=== PATIENT | male | born 1945 | race Caucasian/White ===

== ENCOUNTER → 2018-07-01 13:36 | Outpatient (CLI) | payer MEDICARE, SELFPAY | PROVIDERS: Family Provider Family Medicine Geriatric Medicine; PCP Family Medicine Geriatric Medicine; Visit Provider Family Medicine Geriatric Medicine | DX: M85.852 Other specified disorders of bone density and structure, left thigh (principal); Z82.62 Family history of osteoporosis | CPT/HCPCS: 77080 ==

== ENCOUNTER → 2021-06-05 15:05 | Outpatient (ROUT) | payer MEDICARE, SELFPAY | PROVIDERS: Family Provider Family Medicine Geriatric Medicine; PCP Family Medicine Geriatric Medicine; Visit Provider Dermatology | DX: L03.032 Cellulitis of left toe (principal) | CPT/HCPCS: 87070; 87075; 87077; 87186; 87205 ==

== ENCOUNTER → 2021-09-18 12:56 | Outpatient (ROUT) | payer MEDICARE, SELFPAY | PROVIDERS: Family Provider Family Medicine Geriatric Medicine; PCP Family Medicine Geriatric Medicine; Visit Provider Dermatology | DX: L97.529 Non-pressure chronic ulcer of other part of left foot with unspecified severity (principal) | CPT/HCPCS: 87070; 87075; 87147; 87186; 87205 ==

== ENCOUNTER → 2021-11-01 08:36 | Outpatient (CLI) | payer MEDICARE, SELFPAY | PROVIDERS: Family Provider Family Medicine Geriatric Medicine; PCP Family Medicine Geriatric Medicine; Referring Provider Family Medicine Geriatric Medicine; Visit Provider Family Medicine | DX: L97.522 Non-pressure chronic ulcer of other part of left foot with fat layer exposed (principal); L08.9 Local infection of the skin and subcutaneous tissue, unspecified; G62.9 Polyneuropathy, unspecified; M21.372 Foot drop, left foot; I73.00 Raynaud's syndrome without gangrene; I65.29 Occlusion and stenosis of unspecified carotid artery; Z96.7 Presence of other bone and tendon implants | CPT/HCPCS: 11042; 87070; 87075; 87077; 87186; 87205; 99204; 99214 ==

== ENCOUNTER → 2021-11-08 09:17 | Outpatient (CLI) | payer MEDICARE, SELFPAY | PROVIDERS: Family Provider Family Medicine Geriatric Medicine; PCP Family Medicine Geriatric Medicine; Referring Provider Family Medicine Geriatric Medicine; Visit Provider Family Medicine | DX: L97.522 Non-pressure chronic ulcer of other part of left foot with fat layer exposed (principal); L08.89 Other specified local infections of the skin and subcutaneous tissue; B96.89 Other specified bacterial agents as the cause of diseases classified elsewhere; G62.9 Polyneuropathy, unspecified; M21.372 Foot drop, left foot; I73.00 Raynaud's syndrome without gangrene; I65.29 Occlusion and stenosis of unspecified carotid artery; Z96.7 Presence of other bone and tendon implants | CPT/HCPCS: 11042; 99214 ==

== ENCOUNTER → 2021-11-22 12:03 | Outpatient (CLI) | payer MEDICARE, SELFPAY | PROVIDERS: Family Provider Family Medicine Geriatric Medicine; PCP Family Medicine Geriatric Medicine; Referring Provider Family Medicine Geriatric Medicine; Visit Provider Family Medicine | DX: L97.522 Non-pressure chronic ulcer of other part of left foot with fat layer exposed (principal); G62.9 Polyneuropathy, unspecified; M21.372 Foot drop, left foot; I73.00 Raynaud's syndrome without gangrene; I65.29 Occlusion and stenosis of unspecified carotid artery; Z96.7 Presence of other bone and tendon implants | CPT/HCPCS: 11042 ==

== ENCOUNTER → 2021-12-04 08:43 | Outpatient (CLI) | payer MEDICARE, SELFPAY | PROVIDERS: Family Provider Family Medicine Geriatric Medicine; PCP Family Medicine Geriatric Medicine; Referring Provider Family Medicine Geriatric Medicine; Visit Provider Family Medicine | DX: L97.522 Non-pressure chronic ulcer of other part of left foot with fat layer exposed (principal); G62.9 Polyneuropathy, unspecified; M21.372 Foot drop, left foot; I73.00 Raynaud's syndrome without gangrene; I65.29 Occlusion and stenosis of unspecified carotid artery; Z96.7 Presence of other bone and tendon implants | CPT/HCPCS: 11042; 87070; 87075; 87077; 87147; 87186; 87205 ==

== ENCOUNTER → 2021-12-13 09:49 | Outpatient (CLI) | payer MEDICARE, SELFPAY | PROVIDERS: Family Provider Family Medicine Geriatric Medicine; PCP Family Medicine Geriatric Medicine; Referring Provider Family Medicine Geriatric Medicine; Visit Provider Family Medicine | DX: L97.526 Non-pressure chronic ulcer of other part of left foot with bone involvement without evidence of necrosis (principal); L08.89 Other specified local infections of the skin and subcutaneous tissue; B95.7 Other staphylococcus as the cause of diseases classified elsewhere; G62.9 Polyneuropathy, unspecified; M21.372 Foot drop, left foot; I70.0 Atherosclerosis of aorta; I65.29 Occlusion and stenosis of unspecified carotid artery; Z96.7 Presence of other bone and tendon implants | CPT/HCPCS: 11042; 99212; 99214 ==

== ENCOUNTER → 2021-12-20 08:27 | Outpatient (CLI) | payer MEDICARE, SELFPAY ==
--- NOTE | 2021-12-20 08:30 | DI.MRI.S_ITS ---
PROCEDURE: MR FOOT LT WO/W CON INDICATIONS: Eval for osteo Right hallux TECHNIQUE: Noncontrast coronal T1 spin echo and STIR, sagittal T1 spin echo with fat saturation and STIR, axial T1 spin echo and T2 fast spin echo with fat saturation. After the administration of contrast, axial/sagittal/coronal T1 spin echo with fat saturation through the left foot. COMPARISON: [facility] [place], CR, XR FOOT 3+ VIEWS LEFT, 07/01/2018, 8:42. FINDINGS: Image quality: Excellent. Bones: There is prior surgical fusion of 1st interphalangeal joint with susceptibility artifacts. Extensive marrow edema involving 2nd distal phalanx is seen with subtle erosive changes involving lateral cortex of 1st distal phalangeal shaft and tuft. Mild contrast enhancement in this area is also noted. No other area of abnormal marrow signal or abnormal contrast enhancement. 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 No suspicious intraosseous lesion. Soft tissues: N significant soft tissue edema over dorsum of midfoot and forefoot is seen. No discrete drainable fluid collection is noted. No enhancing soft tissue mass . Forefoot tendons are grossly intact. Lisfranc ligament and joint is intact. IMPRESSION: 1. Cellulitis in midfoot and forefoot with soft tissue swelling. No discrete drainable fluid collection. No enhancing soft tissue mass. 2. Prior fusion of 1st interphalangeal joint with susceptibility artifact. Suggestion of osteomyelitis involving 1st distal phalanx with edema and subtle bony erosive changes. No other area of abnormal marrow signal or contrast enhancement. 3. Forefoot tendons and ligaments are grossly intact. Dictated by: Ronald Mcintyre M.D. on 12/20/2021 at 15:46 Approved by: Ronald Mcintyre M.D. on 12/20/2021 at 15:49
== END ==
PROVIDERS: Family Provider Family Medicine Geriatric Medicine; PCP Family Medicine; Referring Provider Family Medicine; Visit Provider Family Medicine
DX: S91.302A Unspecified open wound, left foot, initial encounter (principal); L08.9 Local infection of the skin and subcutaneous tissue, unspecified; L03.116 Cellulitis of left lower limb; M79.89 Other specified soft tissue disorders
CPT/HCPCS: 11042; 73720; 93923; A9579

== ENCOUNTER → 2021-12-20 11:07 | Outpatient (CLI) | payer MEDICARE, SELFPAY | PROVIDERS: Family Provider Family Medicine Geriatric Medicine; PCP Family Medicine; Referring Provider Physician Assistant; Visit Provider Family Medicine | DX: E11.621 Type 2 diabetes mellitus with foot ulcer (principal); L97.524 Non-pressure chronic ulcer of other part of left foot with necrosis of bone; M86.672 Other chronic osteomyelitis, left ankle and foot; R79.82 Elevated C-reactive protein (CRP) | CPT/HCPCS: 11042; 93923; 99214 ==

== ENCOUNTER → 2021-12-27 08:36 | Outpatient (CLI) | payer MEDICARE, SELFPAY | PROVIDERS: Family Provider Family Medicine Geriatric Medicine; PCP Family Medicine; Referring Provider Family Medicine; Visit Provider Family Medicine | DX: L97.522 Non-pressure chronic ulcer of other part of left foot with fat layer exposed (principal); M86.172 Other acute osteomyelitis, left ankle and foot; G62.9 Polyneuropathy, unspecified; I73.00 Raynaud's syndrome without gangrene; I65.29 Occlusion and stenosis of unspecified carotid artery; Z96.7 Presence of other bone and tendon implants; L08.9 Local infection of the skin and subcutaneous tissue, unspecified | CPT/HCPCS: 11042; 36415; 80053; 85025; 85651; 86140; 99214 ==

== ENCOUNTER → 2021-12-27 09:37 | Outpatient (CLI) | payer MEDICARE, SELFPAY ==
[2021-12-27 10:53] LABS: Add Manual Diff / Slide Review NO; Basophils Absolute Auto 0 /uL (0-100); Basophils Percent Auto 0.5 % (0-2); Eosinophils Absolute Auto 100 /uL (0-450); Eosinophils Percent Auto 1.1 % (2-4); Hematocrit 39.8 % (41-53); Hemoglobin 13.4 g/dL (13.5-17.5); Lymphocytes Absolute Auto 1900 /uL (1100-4500); Lymphocytes Percent Auto 27.6 % (25-40); Mean Corpuscular HGB Conc 33.7 % (30-36); Mean Corpuscular Hemoglobin 32.8 PG (26-34); Mean Corpuscular Volume 97.4 fL (80-100); Monocytes Absolute Auto 700 /uL (0-900); Monocytes Percent Auto 9.3 % (3-14); Neutrophils Absolute Auto 4300 /uL (1500-7000); Neutrophils Percent Auto 61.5 % (50-75); Platelet Count 260 X10^3/uL (150-400); Red Blood Cell Count 4.08 X10^6/uL (4.5-5.9); Red Cell Distribution Width 13.4 % (11.6-14.8)
[2021-12-27 11:15] LABS: Erythrocyte Sedimentation Rate 11 MM/HR (0-15)
[2021-12-27 12:16] LABS: Alanine Aminotransferase 69 IU/L (<50); Albumin Globulin Ratio 1.5 (1.0-2.8); Alkaline Phosphatase 57 U/L (38-126); Aspartate Aminotransferase 78 IU/L (17-59); BUN Creatinine Ratio 18.5 (6-22); Bilirubin Total 0.5 mg/dL (0.2-1.3); Blood Urea Nitrogen 17 mg/dL (9-20); C-Reactive Protein Quant 0.6 mg/dL (<1.0); Calcium 9.7 mg/dL (8.4-10.2); Carbon Dioxide 23 mmol/L (22-32); Chloride 106 mmol/L (98-107); Estimated Glomerular Filt Rate > 60 mL/min (>60); Globulin 2.6 g/dL (1.7-4.1); Glucose 97 mg/dL (80-110); HEMOLYSIS < 15 (0-50); Potassium 3.8 mmol/L (3.4-5.1); Sodium 137 mmol/L (137-145); Total Protein 6.6 g/dL (6.3-8.2)
== END ==
PROVIDERS: Family Provider Family Medicine Geriatric Medicine; PCP Family Medicine; Referring Provider Family Medicine; Visit Provider Family Medicine
DX: L08.9 Local infection of the skin and subcutaneous tissue, unspecified (principal)
CPT/HCPCS: 36415; 80053; 85025; 85651; 86140

== ENCOUNTER → 2022-01-29 09:58 | Outpatient (CLI) | payer MEDICARE, SELFPAY | PROVIDERS: Family Provider Family Medicine Geriatric Medicine; PCP Family Medicine; Referring Provider Family Medicine; Visit Provider Family Medicine | DX: S91.302A Unspecified open wound, left foot, initial encounter (principal); M86.272 Subacute osteomyelitis, left ankle and foot; Z96.698 Presence of other orthopedic joint implants; G90.09 Other idiopathic peripheral autonomic neuropathy | CPT/HCPCS: 11042; 99213 ==

== ENCOUNTER → 2022-02-28 08:55 | Outpatient (CLI) | payer MEDICARE, SELFPAY | PROVIDERS: Family Provider Family Medicine Geriatric Medicine; PCP Family Medicine; Referring Provider Family Medicine; Visit Provider Family Medicine | DX: M86.272 Subacute osteomyelitis, left ankle and foot (principal); L97.526 Non-pressure chronic ulcer of other part of left foot with bone involvement without evidence of necrosis; G90.09 Other idiopathic peripheral autonomic neuropathy; Z96.698 Presence of other orthopedic joint implants; R79.82 Elevated C-reactive protein (CRP); R74.01 Elevation of levels of liver transaminase levels | CPT/HCPCS: 15275; 99213; Q4110 ==

== ENCOUNTER → 2022-03-07 11:18 | Outpatient (CLI) | payer MEDICARE, SELFPAY | PROVIDERS: Family Provider Family Medicine Geriatric Medicine; PCP Family Medicine; Referring Provider Physician Assistant; Visit Provider Family Medicine | DX: L97.526 Non-pressure chronic ulcer of other part of left foot with bone involvement without evidence of necrosis (principal); G90.09 Other idiopathic peripheral autonomic neuropathy; R60.0 Localized edema; Z96.698 Presence of other orthopedic joint implants | CPT/HCPCS: 99212 ==

== ENCOUNTER → 2022-03-14 15:13 | Outpatient (CLI) | payer MEDICARE, SELFPAY | PROVIDERS: Family Provider Family Medicine Geriatric Medicine; PCP Family Medicine; Referring Provider Family Medicine; Visit Provider Family Medicine | DX: M86.272 Subacute osteomyelitis, left ankle and foot (principal); L97.526 Non-pressure chronic ulcer of other part of left foot with bone involvement without evidence of necrosis; G90.09 Other idiopathic peripheral autonomic neuropathy; Z96.698 Presence of other orthopedic joint implants | CPT/HCPCS: 15275; 99212; Q4110 ==

== ENCOUNTER → 2022-03-26 12:50 | Outpatient (CLI) | payer MEDICARE, SELFPAY | PROVIDERS: Family Provider Family Medicine Geriatric Medicine; PCP Family Medicine; Referring Provider Family Medicine; Visit Provider Family Medicine | DX: M86.272 Subacute osteomyelitis, left ankle and foot (principal); L97.526 Non-pressure chronic ulcer of other part of left foot with bone involvement without evidence of necrosis; G90.09 Other idiopathic peripheral autonomic neuropathy; Z96.698 Presence of other orthopedic joint implants | CPT/HCPCS: 11042; 99212 ==

== ENCOUNTER 2022-04-18 09:14 | Day surgery (SDC) | payer MEDICARE, SELFPAY ==
[2022-04-18] VITALS (10 sets, daily range): BP systolic 114–173; BP diastolic 63–83; PULSE 49–68; RESP 11–22; TEMP 36.2–36.8; O2SAT 93–100; BMI 23.5
--- NOTE | 2022-04-18 | PATH_ITS ---
[facility] Accession Number: [id number] . 01 Material submitted: . toe - LEFT GREAT TOE BONE BIOPSY . 01 Diagnosis: Bone, Left Great Toe, Biopsies: Fragments of trabecular bone with interspersed marrow fibrosis and mild chronic inflammation. Fragment of skin with mild hyperkeratosis and underlying chronic inflammation. See comment. MRV 04/29/2022 1541 Local . 01 Comment: An additional step section is examined. The bone findings are not entirely specific; however, definite evidence of osteomyelitis is not identified in sections examined. Clinical and radiographic correlation is suggested. . This case has been reviewed with Dr. Sandy Shabazz, who agrees with the above diagnosis. . 01 Electronically signed: . Jabier Lyon MD, Dermatopathologist NPI- [id number] . 01 Gross description: . The specimen is received in formalin, labeled with the patient's name and left great toe bone biopsy, and consists of multiple coates, irregular, firm tissue fragments consistent with osseous tissue aggregating to 1.2 x 0.9 x 0.3 cm. The specimen is submitted entirely in cassette A1 following decalcification. ([id number]) /FRR 04/21/2022 1544 Local . 01 Pathologist provided ICD-10: L97.524 . 01 CPT . 531236, [id number] Specimen Comment: A courtesy copy of this report has been sent to [phone] Performed at: [address] [id number] MD Jacky England MD Phone: [phone]
[2022-04-18] MEDS: LACTATED RINGERS 1,000 ML 42 ML IV ×2 (10:09→11:58)
--- NOTE | 2022-04-18 10:54 | PM.PREOP ---
Pre-operative Note COVID-19 COVID-19 status: Negative Interval Note History & Physical reviewed/Exam performed by Physician: Yes Changes to H&P: No
--- NOTE | 2022-04-18 11:43 | SUR.OPER ---
Supine on padded OR bed, head on pillow, arms secured on padded arm boards at <90 degrees abduction, legs uncrossed, safety belt at lower torso, tape over blanket over right lower leg. gel pad under bilateral heels. Left leg in control of the Surgeon. Folded bath blanket bump under left lower leg placed by Surgeon.
[2022-04-18] MEDS: CEFAZOLIN 2 GM/100 ML PREMIX 100 ML IV (11:50)
[2022-04-18] MEDS: BUPIVACAINE 0.25% (PF) 30 ML, EPINEPHrine 0.15 MG INJ (11:53)
--- NOTE | 2022-04-18 12:17 | PM.OP.1 ---
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 Has been ongoing at least 9 months after had a toenail procedure by an outside surgeon. And then previously had a IP fusion by Dr. Do greater than 7 years ago. States his toe was fine before the nail procedure and that has been draining since. An MRI concerning for osteomyelitis and he has been on several courses of IV antibiotics. Vascular workup as the confirmed appropriate blood flow. Has been indicated for excisional debridement hardware removal and bone biopsy with excision of the sinus. The risks and benefits of the procedure have been discussed with the patient and given the opportunity to ask questions. The risks of surgery include but are not limited to infection, persistence of pain, damage to nerves and blood vessels, need for additional surgery, DVT, PE, cardiopulmonary complications and . The patient expressed a thorough understanding of the risks and benefits of surgery and has elected to proceed. Consent was signed in the office. Surgeon: Haily Ochoa Click Yes if Unassisted: Yes Anesthesia Type: General and Local Operative Notes Findings: Sinus at the lateral nail fold at the site of the previous nail removal tracked back down to the lateral IP joint stable. To ayah are removed in total and bone biopsy taken and sent for culture and PCR. No gross abscess demonstrated. Sinus tract was excised Specimen(s): other Prosthetic devices, grafts, tissues, transplants, or devices: Bone was sent for culture and bacterial PCR Estimated Blood Loss (mL): 5 Blood products transfused: none Tourniquet time (min): 14 Procedure in detail: Patient was seen in the preoperative area the site of surgery marked informed consent confirmed. He was brought back to the operating room by the anesthesia team positioned supine on operative table. Anesthetic was administered. A formal time-out procedure was performed confirming the patient's and site of surgery antibiotics were held for cultures and then were administered after cultures were taken this was 2 g of Ancef. All were in agreement Attention turned to the left great toe. [place] was used for exsanguination the tourniquet was raised on the thigh to 250 mmHg. The state elevate 14 minutes. Curvilinear incision was made from the lateral nail fold over the IP joint and extending proximally over proximal phalanx. The sinus tract was excised. Skin flaps were elevated. Dissection was taken full-thickness down to the level of the dorsal metallic ayah. These were removed using the [place] and an osteotome. The medial stable needed to be loosened by drilling around the most proximal cherelle the. Once these were removed curette and rongeur was used for bone biopsy this was sent for culture then the preoperative antibiotic was administered. C-arm was brought in to confirm complete hardware removal. Tourniquet was released. Hemostasis was achieved. 10 cc of 0.25% Marcaine with epinephrine was injected as local anesthetic. The wound was irrigated thoroughly with saline and closed in a layered fashion with 4-0 Monocryl and 4-0 nylon suture. A soft dressing was applied. The patient was woken from anesthesia and taken to the PACU in good condition there no immediate complications was procedure. All counts were correct. Complications: none Post-operative Condition: stable Plan for aftercare: Weightbear as tolerated in a postoperative sandal or shoe. Will return in 2-3 weeks for suture removal. Will get Levaquin prescription based on previous cultures. We will tailor based on intraoperative cultures. Patient understands and agrees with plan. May change dressing is saturated but do not soak or wet incision
--- NOTE | 2022-04-18 12:33 | SUR.PHASEI ---
Report given to Mellissa
--- NOTE | 2022-04-18 13:45 | SUR.PHASEII ---
Patient ambulated to bathroom and voided with little assist. Tolerated fluids. Provided discharge instructions written and verbal. Patient stated understanding. Discharged by wheelchair to private vehicle in stable condition. See flowsheet for details.
[2022-05-02 08:31] LABS: Bacteria Det by PCR Univ WA DETECTED
== END 2022-04-18 13:25 | disposition home or self-care (01) ==
PROVIDERS: Family Provider Family Medicine Geriatric Medicine; PCP Family Medicine; Referring Provider Orthopaedic Surgery Foot and Ankle Surgery; Visit Provider Orthopaedic Surgery Foot and Ankle Surgery
PROC: (CPT 28124; principal; 2022-04-18 11:15)
DX: L97.524 Non-pressure chronic ulcer of other part of left foot with necrosis of bone (principal); T84.7XXA Infection and inflammatory reaction due to other internal orthopedic prosthetic devices, implants and grafts, initial encounter; K21.9 Gastro-esophageal reflux disease without esophagitis; Z20.822 Contact with and (suspected) exposure to COVID-19
CPT/HCPCS: 28124; 20680; 87801; J0171; J0690; J2250; J2405; J2704; J3010

== ENCOUNTER 2023-04-02 08:13 | Outpatient (CLI) | payer MEDICARE, OTHER, SELFPAY ==
[2023-04-02] VITALS (9 sets, daily range): BP systolic 111–153; BP diastolic 59–82; PULSE 51–59; RESP 11–20; TEMP 36.6; O2SAT 96–99
--- NOTE | 2023-04-02 08:14 | DI.RAD.S_ITS ---
PROCEDURE: PAIN L/S FACET INJ/BLK 1ST YONI INDICATIONS: SPONDYLOSIS COMPARISON: [facility], CR, XR LUMBAR SPINE WITH FLEXION EXTENSION 5 VIEWS, 03/22/2022, 9:45. FINDINGS: Fluoroscopic spot filming was performed to verify placement of spinal needles on both sides along the courses of the L3, L4, and L5 nerve roots levels, as labeled on the films. Appropriate location of the needle tips was confirmed by injection of iodinated contrast. IMPRESSION: Intraprocedural examination demonstrating appropriate positions of the needles. Dictated by: Ishaan Menon M.D. on 04/02/2023 at 12:45 Approved by: Ishaan Menon M.D. on 04/02/2023 at 12:46
[2023-04-02] MEDS: MIDAZOLAM 2 MG/2 ML VIAL 1 MG IV (09:05)
[2023-04-02] MEDS: iopamidoL 15 ML VIAL 3 ML INJ (09:11)
[2023-04-02] MEDS: BUPIVACAINE 0.5% (PF) 10 ML VIAL 5 ML INJ (09:11)
--- NOTE | 2023-04-02 12:48 | P.PCN_ITS ---
Date/Time/Diagnoses Date of procedure: 04/02/23 Time of procedure: 09:00 Procedure Notes Physician: Jermaine Mckay Total Fluoroscopy time (seconds): 21 Total sedation minutes: 15 Procedure in detail & Post-procedure care: Bilateral L3, 4, 5 Lumbar Medial Branch Blocks Indications: Elijah is presenting for treatment of lumbar spondylosis with low back pain. Preoperative diagnosis: Lumbar spondylosis Postoperative diagnosis: Same Pre-procedure History: F Patient demonstrates today moderate to severe non- radicular back pain without neurologic deficit aggravated by hyperextension yes Back pain greater than leg pain? F yes Patient today has tenderness over the suspected joint(s) yes History of post-traumatic injury? no Hypertrophic arthropathy F yes Back pain associated with suspected motion segment instability, hypermobility or pseudoarthrosis no Pre-testing pain score (VAS): 7/10 Focused Examination: Ax3 Mood and affect are normal Vital Signs: VSS ASA: 2 Consent: Following review of allergies and potential side effects/complications, including, but not necessarily limited to, infection, allergic reaction, local tissue breakdown, stroke, temporary or permanent nerve injury, paralysis, and possible , the patient indicated that they understood and agreed to proceed.? An informed consent document was signed by the patient, witnessed by a nurse and placed in the patient's chart.? Additionally, other treatment options including medications and physical therapy were reviewed with the patient. All questions were answered. Site was then marked. Anesthesia: After review of previous anesthetic history and IV conscious sedation, the patient was deemed safe to proceed with today's procedure with IV conscious sedation. IV sedation was accomplished with midazolam 1 mg administered by the RN after order by Dr. Mckay. Sedation was titrated to patient comfort during the course of the procedure. Patient remained responsive to all verbal commands. Position: Prone Monitoring: NIBP, Pulse oximetry, 3 lead EKG Needle used: 22 ga 3.5 inch spinal needle Contrast: Isovue 300M Injectate: 0.5% bupivacaine 1 mL per site Procedure: The patient was brought into the procedure room and positioned into the prone position. Skin was prepped with a Chloraprep solution, allowed to air dry, and then draped in sterile fashion.? The right L4-5 and L5-S1 facet joints were visually identified with fluoroscopy. Lidocaine 1% was used to anesthetize the skin over each target destination with a 25ga needle. A 22 ga, 3.5 inch spinal needle was advanced to the location of the medial branch at the junction of the superior articular process and the transverse process at L4,5 and the base of the SAP of the sacrum using intermittent fluoroscopy in the AP view. Isovue 300M contrast 0.2ml was injected at each level outlining the medial borders for each level and the base of the SAP of the sacrum in the AP and lateral views. There was no evidence of vascular or intrathecal uptake. The above injectate was slowly injected at each target destination. The left L4-5 and L5-S1 facet joints were visually identified with fluoroscopy. Lidocaine 1% was used to anesthetize the skin over each target destination with a 25ga needle. A 22 ga, 3.5 inch spinal needle was advanced to the location of the medial branch at the junction of the superior articular process and the transverse process at L4,5 and the base of the SAP of the sacrum using intermittent fluoroscopy in the AP view. Isovue 300M contrast 0.2ml was injected at each level outlining the medial borders for each level and the base of the SAP of the sacrum in the AP and lateral views. There was no evidence of vascular or intrathecal uptake. The above injectate was slowly injected at each target destination. At the end of the procedure the needles were withdrawn and Band- Aids were applied for a dressing. Post Procedure: Patient was taken to the recovery and monitored. The patient was provided a Pain Log to continue to record the patient's response to the target- specific procedure prior to the patient's follow-up visit with the referring physician. Patient was stable upon discharge. Detailed post procedure instructions were provided. Patient was asked to call in the event of worsening pain, fever, weakness, numbness or bladder or bowel incontinence. Postoperatively, today patient demonstrates the following changes with hyperextension and with tenderness over the suspected joint(s). Provacative testing using the Angulo's facet loading test Right side Left side Directly before the block ?VAS (0-10) = 7/10 VAS (0-10) = 7/10 5 minutes after the block VAS (0-10) = 4/10 VAS (0-10) = 4/10 Percentage relief obtained with this diagnostic block 43% 43% Any improved physical functioning directly after the blocks? Range of motion Based on the medial branches blocked today, if the patient meets insurance criteria for radiofrequency, the treatment should result in the denervation of the bilateral L4-5 and L5-S1 facet joint nerves. We would expect to denervate a total of 4 facets during the radiofrequency ablation.
== END 2023-04-02 09:42 | disposition home or self-care (01) ==
PROVIDERS: Family Provider Family Medicine Geriatric Medicine; PCP Physician Assistant Medical; Referring Provider Anesthesiology; Visit Provider Anesthesiology
DX: M47.816 Spondylosis without myelopathy or radiculopathy, lumbar region (principal)
CPT/HCPCS: 64493; 64494; 99152; J2250

== ENCOUNTER 2023-06-11 09:58 | Outpatient (CLI) | payer MEDICARE, OTHER, SELFPAY ==
[2023-06-11] VITALS (9 sets, daily range): BP systolic 107–159; BP diastolic 57–89; PULSE 54–61; RESP 12–16; TEMP 36.1; O2SAT 96–99
[2023-06-11] MEDS: MIDAZOLAM 2 MG/2 ML VIAL 1 MG IV (10:23)
[2023-06-11] MEDS: iopamidoL 15 ML VIAL 3 ML INJ (10:24)
[2023-06-11] MEDS: LIDOCAINE 2% INJ MDV 20ML 5 ML INJ (10:24)
--- NOTE | 2023-06-11 10:30 | DI.RAD.S_ITS ---
PROCEDURE: PAIN L/S FACET INJ/BLK 1ST YONI INDICATIONS: Spondylosis COMPARISON: [facility], , PAIN L/S FACET INJ/BLK 1ST YONI, 04/02/2023, 9:08. FINDINGS: Fluoroscopic spot filming was performed to verify placement of spinal needles at the bilateral L3-L5 level(s), as labeled on the films. Appropriate location(s) of the needle tip(s) was confirmed by injection of iodinated contrast. IMPRESSION: Bilateral fluoroscopically guided facet injections of the lumbar spine. Dictated by: Reba Gordon M.D. on 06/11/2023 at 14:03 Approved by: Reba Gordon M.D. on 06/11/2023 at 14:03
--- NOTE | 2023-06-11 10:39 | P.PCN_ITS ---
Date/Time/Diagnoses Date of procedure: 06/11/23 Time of procedure: 10:30 Procedure Notes Physician: Jermaine Mckay Total Fluoroscopy time (seconds): 26 Total sedation minutes: 12 Procedure in detail & Post-procedure care: Bilateral L3, 4, 5 Lumbar Medial Branch Blocks Indications: Daryn is presenting for treatment of lumbar spondylosis with low back pain. Preoperative diagnosis: Lumbar spondylosis Postoperative diagnosis: Same Pre-procedure History: F Patient demonstrates today moderate to severe non- radicular back pain without neurologic deficit aggravated by hyperextension yes Back pain greater than leg pain? F yes Patient today has tenderness over the suspected joint(s) yes History of post-traumatic injury? no Hypertrophic arthropathy F yes Back pain associated with suspected motion segment instability, hypermobility or pseudoarthrosis no Focused Examination: Ax3 Mood and affect are normal Vital Signs: VSS ASA: 2 Consent: Following review of allergies and potential side effects/complications, including, but not necessarily limited to, infection, allergic reaction, local tissue breakdown, stroke, temporary or permanent nerve injury, paralysis, and possible , the patient indicated that they understood and agreed to proceed.? An informed consent document was signed by the patient, witnessed by a nurse and placed in the patient's chart.? Additionally, other treatment options including medications and physical therapy were reviewed with the patient. All questions were answered. Site was then marked. Anesthesia: After review of previous anesthetic history and IV conscious sedation, the patient was deemed safe to proceed with today's procedure with IV conscious sedation. IV sedation was accomplished with midazolam 1 mg administered by the RN after order by Dr. Mckay. Sedation was titrated to patient comfort during the course of the procedure. Patient remained responsive to all verbal commands. Position: Prone Monitoring: NIBP, Pulse oximetry, 3 lead EKG Needle used: 22 ga 3.5 inch spinal needle Contrast: Isovue 300M Injectate: 2% lidocaine 1 mL per site Procedure: The patient was brought into the procedure room and positioned into the prone position. Skin was prepped with a Chloraprep solution, allowed to air dry, and then draped in sterile fashion.? The right L4-5 and L5-S1 facet joints were visually identified with fluoroscopy. Lidocaine 1% was used to anesthetize the skin over each target destination with a 25ga needle. A 22 ga, 3.5 inch spinal needle was advanced to the location of the medial branch at the junction of the superior articular process and the transverse process at L4,5 and the base of the SAP of the sacrum using intermittent fluoroscopy in the AP view. Isovue 300M contrast 0.2ml was injected at each level outlining the medial borders for each level and the base of the SAP of the sacrum in the AP and lateral views. There was no evidence of vascular or intrathecal uptake. The above injectate was slowly injected at each target destination. The left L4-5 and L5-S1 facet joints were visually identified with fluoroscopy. Lidocaine 1% was used to anesthetize the skin over each target destination with a 25ga needle. A 22 ga, 3.5 inch spinal needle was advanced to the location of the medial branch at the junction of the superior articular process and the transverse process at L4,5 and the base of the SAP of the sacrum using intermittent fluoroscopy in the AP view. Isovue 300M contrast 0.2ml was injected at each level outlining the medial borders for each level and the base of the SAP of the sacrum in the AP and lateral views. There was no evidence of vascular or intrathecal uptake. The above injectate was slowly injected at each target destination. At the end of the procedure the needles were withdrawn and Band- Aids were applied for a dressing. Post Procedure: Patient was taken to the recovery and monitored. The patient was provided a Pain Log to continue to record the patient's response to the target- specific procedure prior to the patient's follow-up visit with the referring physician. Patient was stable upon discharge. Detailed post procedure instructions were provided. Patient was asked to call in the event of worsening pain, fever, weakness, numbness or bladder or bowel incontinence. Based on the medial branches blocked today, if the patient meets insurance criteria for radiofrequency, the treatment should result in the denervation of the bilateral L4-5 and L5-S1 facet joint nerves. We would expect to denervate a total of 4 facets during the radiofrequency ablation.
== END 2023-06-11 10:58 | disposition home or self-care (01) ==
LOC: RAD 09:59
PROVIDERS: Family Provider Family Medicine Geriatric Medicine; PCP Physician Assistant Medical; Referring Provider Anesthesiology; Visit Provider Anesthesiology
DX: M47.816 Spondylosis without myelopathy or radiculopathy, lumbar region (principal)
CPT/HCPCS: 64493; 64494; 99152; J2250

== ENCOUNTER 2023-07-02 13:20 | Outpatient (CLI) | payer MEDICARE, OTHER, SELFPAY ==
[2023-07-02] VITALS (11 sets, daily range): BP systolic 96–160; BP diastolic 55–91; PULSE 40–54; RESP 7–18; TEMP 36.7; O2SAT 96–99
--- NOTE | 2023-07-02 14:00 | DI.RAD.S_ITS ---
PROCEDURE: PAIN L/S MED/LAT N RFA BILAT INDICATIONS: SPONDYLOSIS COMPARISON: None. FINDINGS: Fluoroscopic spot filming was performed to verify placement of spinal needles at the bilateral L3 through L5 level(s), as labeled on the films. Appropriate location(s) of the needle tip(s) was confirmed by injection of iodinated contrast. IMPRESSION: Fluoroscopic guidance utilized for radiofrequency ablation of the medial branch. Dictated by: Onel Graf M.D. on 07/02/2023 at 16:46 Approved by: Onel Graf M.D. on 07/02/2023 at 16:46
[2023-07-02] MEDS: MIDAZOLAM 2 MG/2 ML VIAL IV (14:09)
[2023-07-02] MEDS: BUPIVACAINE 0.5% (PF) 10 ML VIAL 5 ML INJ (14:12)
[2023-07-02] MEDS: DEXAMETHASONE 10 MG/ML VIAL INJ (14:13)
[2023-07-02] MEDS: LIDOCAINE 2% INJ SDV 5ML 10 ML INJ (14:14)
[2023-07-02] MEDS: MIDAZOLAM 2 MG/2 ML VIAL 1 MG IV (14:29)
--- NOTE | 2023-07-02 16:27 | P.PCN_ITS ---
Date/Time/Diagnoses Date of procedure: 07/02/23 Time of procedure: 14:00 Procedure Notes Physician: Jermaine Mckay Total Fluoroscopy time (seconds): 26 Total sedation minutes: 35 Procedure in detail & Post-procedure care: Bilateral L3, 4, 5 Lumbar Medial Branch Radio Frequency Ablation Indications: Elijah presents for treatment of lumbar spondylosis with low back pain. Preoperative diagnosis: Lumbar spondylosis Postoperative diagnosis: Same Focused Examination: Ax3 Mood and affect are normal Vital Signs: VSS ASA: 2 Consent: Following review of allergies and potential side effects/complications, including, but not necessarily limited to, infection, allergic reaction, local tissue breakdown, stroke, temporary or permanent nerve injury, paralysis, and possible , the patient indicated that they understood and agreed to proceed.? An informed consent document was signed by the patient, witnessed by a nurse and placed in the patient's chart.? Additionally, other treatment options including medications and physical therapy were reviewed with the patient. All questions were answered. Site was then marked. Position: Prone Monitoring: NIBP, Pulse oximetry, 3 lead EKG Needle used: 18 guage, 100 mm, 10 mm active tip Anesthesia: Local with IV sedation. After review of previous anesthetic history and IV conscious sedation, the patient was deemed safe to proceed with today's procedure with IV conscious sedation. IV sedation was accomplished with midazolam 2 mg administered by the RN after order by Dr. Mckay. Sedation was titrated to patient comfort during the course of the procedure. Patient remained responsive to all verbal commands. Procedure: The patient was brought into the procedure room and positioned into the prone position. Skin was prepped with a Chloraprep solution, allowed to air dry, and then draped in sterile fashion.? The right L4-5 and L5-S1 facet joints were visually identified with fluoroscopy. Lidocaine 1% was used to anesthetize the skin over each target destination with a 25ga needle. An 18 ga, 100 mm RFA needle with a 10 mm active tip was advanced to the location of the medial branch at the junction of the superior articular process and the transverse process at L4,5 and the base of the SAP of the sacrum using intermittent fluoroscopy in the oblique view with caudal tilt. AP and lateral radiographs were taken to confirm proper needle placement. No paresthesias were noted. The stylet was removed and the radiofrequency probe was inserted through the cannula. Each level was individually tested.? Motor stimulation up to 2V elicited multifidus twitching in the lumbar spine. There was no motor stimulation in the lower extremities. After negative aspiration, 1ml of 2% lidocaine was injected at each of the levels and radiofrequency denervation carried out using 80 degrees Celsius for 90 seconds. The needles were then rotated 90 degrees and a second ablation was performed at 80 degrees Celsius for 90 seconds. Next, the left L4-5 and L5-S1 facet joints were visually identified with fluoroscopy. Lidocaine 1% was used to anesthetize the skin over each target destination with a 25ga needle. An 18 ga, 100 mm RFA needle with a 10 mm active tip was advanced to the location of the medial branch at the junction of the superior articular process and the transverse process at L4,5 and the base of the SAP of the sacrum using intermittent fluoroscopy in the oblique view with caudal tilt. AP and lateral radiographs were taken to confirm proper needle p lacement. No paresthesias were noted. The stylet was removed and the radiofrequency probe was inserted through the cannula. Each level was individually tested. Motor stimulation up to 2V elicited multifidus twitching in the lumbar spine. There was no motor stimulation in the lower extremities. After negative aspiration, 1ml of 2% lidocaine was injected at each of the levels and radiofrequency denervation carried out using 80 degrees Celsius for 90 seconds. The needles were then rotated 90 degrees and a second ablation was performed at 80 degrees Celsius for 90 seconds. After ablation, a mixture of 10 mg dexamethasone with 0.5% bupivacaine 5 mL was injected in equal amounts among the sites (1 mL per site). At the end of the procedure the needles were withdrawn and Band-Aids were applied for a dressing. This procedure is expected to denervate the bilateral L4-5 and L5-S1 facet joints. Post Procedure: Patient was taken to the recovery and monitored. The patient was provided a Pain Log to continue to record the patient's response to the target- specific procedure prior to the patient's follow-up visit with the referring physician. Patient was stable upon discharge. Detailed post procedure instructions were provided. Patient was asked to call in the event of worsening pain, fever, weakness, numbness or bladder or bowel incontinence. Complications: None
== END 2023-07-02 15:09 | disposition home or self-care (01) ==
LOC: RAD 13:21
PROVIDERS: Family Provider Family Medicine Geriatric Medicine; PCP Physician Assistant Medical; Referring Provider Anesthesiology; Visit Provider Anesthesiology
DX: M47.816 Spondylosis without myelopathy or radiculopathy, lumbar region (principal)
CPT/HCPCS: 64494; 64635; 64636; 99152; 99153; J1100; J2250

== ENCOUNTER 2023-09-24 13:08 | Outpatient (CLI) | payer MEDICARE, OTHER, SELFPAY ==
--- NOTE | 2023-09-24 13:11 | DI.RAD.S_ITS ---
PROCEDURE: PAIN L INTERLAMINAR/CAUDAL INJ INDICATIONS: RADICULOPATHY COMPARISON: None. FINDINGS: Fluoroscopic spot filming was performed to verify placement of spinal needles at the L5-S1 trans laminar space level(s), as labeled on the films. Appropriate location(s) of the needle tip(s) was confirmed by injection of iodinated contrast. IMPRESSION: Fluoroscopic guidance Approved by: Larry More M.D. on 09/24/2023 at 19:43
[2023-09-24 13:45] VITALS: BP 158/64; PULSE 58; RESP 20; TEMP 36.7; O2SAT 96
[2023-09-24 14:06] VITALS: BP 173/74; PULSE 55; RESP 11; O2SAT 97
[2023-09-24 14:11] VITALS: BP 144/65; PULSE 56; RESP 12; O2SAT 98
[2023-09-24 14:16] VITALS: BP 150/70; PULSE 52; RESP 10; O2SAT 98
[2023-09-24] MEDS: DEXAMETHASONE 10 MG/ML VIAL INJ (14:18)
[2023-09-24] MEDS: iopamidoL 15 ML VIAL 3 ML INJ (14:19)
[2023-09-24 14:21] VITALS: BP 143/69; PULSE 53; RESP 12; O2SAT 98
--- NOTE | 2023-09-24 14:26 | PC.NURSE ---
per patient he dose have a history of irregular and arsenio heart rhythms
[2023-09-24 14:30] VITALS: BP 142/91; PULSE 53; RESP 18; O2SAT 97
--- NOTE | 2023-09-24 16:22 | P.PCN_ITS ---
Date/Time/Diagnoses Date of procedure: 09/24/23 Time of procedure: 14:00 Procedure Notes Physician: Jermaine Mckay Total Fluoroscopy time (seconds): 29 Total sedation minutes: 0 Procedure in detail & Post-procedure care: L5-S1 Interlaminar Epidural Steroid Injection Indications: Elijah is presenting for treatment of lumbar radiculopathy with low back and leg pain. Preoperative diagnosis: Lumbar radiculopathy Postoperative diagnosis: Same Focused Examination: Ax3 Mood and affect are normal Vital Signs: VSS Consent: Following review of allergies and potential side effects/complications, including, but not necessarily limited to, infection, allergic reaction, local tissue breakdown, stroke, temporary or permanent nerve injury, paralysis, and possible , the patient indicated that they understood and agreed to proceed.? An informed consent document was signed by the patient, witnessed by a nurse and placed in the patient's chart.? Additionally, other treatment options including medications and physical therapy were reviewed with the patient. All questions were answered. Site was then marked. Anesthesia: Local Position: Prone Monitoring: NIBP, Pulse oximetry, 3 lead EKG Needle used: 18 G 3.5? Tuohy Contrast: Isovue 300M Injectate: Dexamethasone 10 mg with 1% lidocaine 2 mL Technique: The skin was prepped with chloraprep and then draped in a sterile fashion. Time out was performed as per protocol. Oxygen applied via NC. Skin and subcutaneous structures of the needle entry site was then infiltrated with 3 mL of lidocaine 1%. Under AP, lateral and contralateral oblique fluoroscopic control, the Tuohy needle was guided into the L4-5 space. Unable to access this level due to osteophytes obstructing the path. Decision made to proceed with the L5-S1 level. Skin and subcutaneous structures of the needle entry site was then infiltrated with 3 mL of lidocaine 1%. Under AP, lateral and contralateral oblique fluoroscopic control, the Tuohy needle was guided into the L5-S1 epidural space.The space was accessed with loss of resistance technique. Isovue 300M was then injected and the spread was consistent with the epidural space. There was no evidence for intravascular or intrathecal uptake. After negative aspiration, the above-mentioned injectate was then slowly administered and the needle withdrawn. The patient expressed no unusual discomfort or paresthesias during the injection. Band-Aids applied to injection sites. EBL: less than 1 ml Complications: None Post Procedure: Patient was taken to the recovery and monitored. The patient was provided a Pain Log to continue to record the patient's response to the target- specific procedure prior to the patient's follow-up visit with the referring physician. Patient was stable upon discharge. Detailed post procedure instructions were provided. Patient was asked to call in the event of worsening pain, fever, weakness, numbness or bladder or bowel incontinence.
== END 2023-09-24 14:34 | disposition home or self-care (01) ==
LOC: RAD 13:09
PROVIDERS: Family Provider Family Medicine Geriatric Medicine; PCP Physician Assistant Medical; Referring Provider Anesthesiology; Visit Provider Anesthesiology
DX: M54.16 Radiculopathy, lumbar region (principal)
CPT/HCPCS: 62323; J1100

== ENCOUNTER → 2023-11-10 11:48 | Outpatient (CLI) | payer MEDICARE, OTHER, SELFPAY ==
--- NOTE | 2023-11-10 11:50 | DI.MRI.S_ITS ---
PROCEDURE: MR LUMBAR SPINE WO CON INDICATIONS: Lumbar spinal stenosis,radiculopathy TECHNIQUE: Noncontrast sagittal T1 spin echo and T2 fast echo, sagittal STIR, and T2 fast spin echo through the lumbar spine. In cases with scoliosis, additional coronal T2 fast spin echo may be performed. COMPARISON: None. FINDINGS: Image quality: Excellent. Alignment and Curvature: There is normal bony alignment. Bone Marrow: Multilevel chronic degenerative endplate changes. Wedge-shaped T12 without marrow edema or retropulsed fracture fragment. Spinal Cord: Conus medullaris terminates at the L1 level. Visualized cord demonstrates normal signal and size. Paraspinous Soft Tissues: No paravertebral masses. T12-L1: Mild posterior disc bulge with tiny superimposed central protrusion results in mild central stenosis. Moderate left and no right foraminal stenosis. L1-L2: Disc space narrowing with posterior disc bulge. Mild central stenosis. Moderate left and mild right foraminal stenosis L2-L3: Disc space narrowing and hypertrophic facet joints combined result in moderate central stenosis. Severe right and moderate left foraminal stenosis L3-L4: Disc space narrowing posterior disc bulge and hypertrophic facet joints combined with ligamentum flavum laxity results in moderate central stenosis. Severe right and mild left foraminal stenosis L4-L5: Disc space is relatively preserved. Posterior disc bulge with hypertrophic facet joints and ligamentum flavum laxity combined result in severe central stenosis. Severe bilateral foraminal stenosis L5-S1: Disc space narrowing with disc bulge and mild facet arthropathy. No central stenosis. Moderate left and mild right foraminal stenosis IMPRESSION: Multilevel degenerative disc disease and arthropathy results in varying degrees of central and foraminal stenosis including severe central and foraminal stenosis L4-5 Approved by: Larry More M.D. on 11/10/2023 at 17:04
== END ==
PROVIDERS: Family Provider Family Medicine Geriatric Medicine; PCP Physician Assistant; Referring Provider Anesthesiology; Visit Provider Anesthesiology
DX: M47.26 Other spondylosis with radiculopathy, lumbar region (principal); M51.16 Intervertebral disc disorders with radiculopathy, lumbar region; M48.061 Spinal stenosis, lumbar region without neurogenic claudication; M47.27 Other spondylosis with radiculopathy, lumbosacral region; M51.17 Intervertebral disc disorders with radiculopathy, lumbosacral region; M48.07 Spinal stenosis, lumbosacral region; M54.9 Dorsalgia, unspecified
CPT/HCPCS: 72148

== ENCOUNTER → 2024-01-16 10:56 | Outpatient (CLI) | payer MEDICARE, OTHER, SELFPAY ==
--- NOTE | 2024-01-16 | DI.CT.S_ITS ---
PROCEDURE: CT LUMBAR SPINE WO CON INDICATIONS: low back pain TECHNIQUE: Noncontrast 3 mm thick sections acquired from the T12 level to the sacrum. Sagittal and coronal reformats were constructed. For radiation dose reduction, the following was used: automated exposure control. COMPARISON: None. FINDINGS: Image quality: Excellent. Bones: Marked levoconvex scoliosis of the lumbar spine. No acute vertebral body compression fractures. No suspicious lytic or blastic bony lesions. Large Schmorl node along the inferior endplate of T12. No pars defects. Marked multilevel disc height loss. Grade 1 retrolisthesis of L5 on S1 and grade 1 anterolisthesis of L4 on L5. T12-L1: Dorsal disc osteophyte complex mildly narrows the spinal canal. No foraminal stenosis. Bilateral facet arthropathy and mild ligamentum flavum hypertrophy. L1-L2: Left extraforaminal disc bulge. No spinal canal stenosis. Moderate bilateral foraminal stenosis. There is bilateral facet arthropathy and ligamentum flavum hypertrophy. L2-L3: No spinal canal stenosis. Left extra foraminal disc bulge. Mild bilateral foraminal narrowing. Bilateral facet arthropathy and ligamentum flavum hypertrophy. L3-L4: Dorsal disc bulge and ligamentum flavum hypertrophy result in moderate spinal canal stenosis. Mild to moderate bilateral foraminal stenosis. There is bilateral facet arthropathy. L4-L5: Dorsal disc bulge and ligamentum flavum hypertrophy results in at least moderate spinal canal stenosis. Severe right foraminal stenosis and moderate to severe left foraminal stenosis. There is bilateral facet arthropathy. L5-S1: No significant spinal canal stenosis. Moderate left foraminal stenosis and mild narrowing of the right foramen. There is bilateral facet arthropathy and ligamentum flavum hypertrophy. Soft tissues: Moderate size hiatal hernia. Atelectasis within the dependent portions the visualized lungs. Calcified arthrosclerotic plaques within the abdominal aorta and its tributaries. 1.9 centimeters cyst within the midpole of the right kidney. Diverticulosis of the sigmoid and rectum. IMPRESSION: 1. There is multilevel degenerative disc disease throughout the lumbar spine as described above. The worst level is at L4-L5 where there is at least moderate spinal canal stenosis, severe right foraminal stenosis and moderate to severe left foraminal stenosis. 2. There is marked levoconvex scoliosis of the lumbar spine. Grade 1 retrolisthesis of L5 on S1 and grade 1 anterolisthesis of L4 on L5. 3. Moderate-sized hiatal hernia. 4. There are calcified arthrosclerotic plaques within the abdominal aorta and its tributaries. Dictated by: Janusz Taylor M.D. on 01/16/2024 at 11:27 Approved by: Janusz Taylor M.D. on 01/16/2024 at 11:59
[2024-01-16 11:57] LABS: Add Manual Diff / Slide Review NO; Basophils Absolute Auto 100 /uL (0-100); Basophils Percent Auto 0.9 % (0-2); Eosinophils Absolute Auto 100 /uL (0-450); Eosinophils Percent Auto 1.2 % (2-4); Hematocrit 40.5 % (41-53); Hemoglobin 13.7 g/dL (13.5-17.5); Lymphocytes Absolute Auto 2100 /uL (1100-4500); Lymphocytes Percent Auto 25.9 % (25-40); Mean Corpuscular HGB Conc 33.9 % (30-36); Mean Corpuscular Hemoglobin 33.6 PG (26-34); Mean Corpuscular Volume 99.3 fL (80-100); Monocytes Absolute Auto 800 /uL (0-900); Monocytes Percent Auto 9.5 % (3-14); Neutrophils Absolute Auto 5000 /uL (1500-7000); Neutrophils Percent Auto 62.5 % (50-75); Platelet Count 252 X10^3/uL (150-400); Red Blood Cell Count 4.08 X10^6/uL (4.5-5.9)
== END ==
PROVIDERS: Family Provider Family Medicine Geriatric Medicine; PCP Physician Assistant; Referring Provider Orthopaedic Surgery Orthopaedic Surgery of the Spine; Visit Provider Orthopaedic Surgery Orthopaedic Surgery of the Spine
DX: M51.36 Other intervertebral disc degeneration, lumbar region (principal); Z01.812 Encounter for preprocedural laboratory examination; M48.061 Spinal stenosis, lumbar region without neurogenic claudication; M41.9 Scoliosis, unspecified; M43.17 Spondylolisthesis, lumbosacral region; M54.50 Low back pain, unspecified; K44.9 Diaphragmatic hernia without obstruction or gangrene; I70.0 Atherosclerosis of aorta; N28.1 Cyst of kidney, acquired; K57.30 Diverticulosis of large intestine without perforation or abscess without bleeding
CPT/HCPCS: 36415; 72131; 85025

== ENCOUNTER 2024-01-19 08:32 | Inpatient (IN) | payer MEDICARE, OTHER, SELFPAY ==
[2024-01-15 13:43] VITALS: BMI 21.7
[2024-01-19] VITALS (16 sets, daily range): BP systolic 90–144; BP diastolic 50–96; PULSE 58–86; RESP 10–18; TEMP 35.7–37.1; O2SAT 94–98; BMI 21.7
[2024-01-19] MEDS: ACETAMINOPHEN 325 MG TABLET 975 MG PO (10:38)
[2024-01-19] MEDS: LACTATED RINGERS 1,000 ML 42 ML IV ×2 (10:38→14:29)
--- NOTE | 2024-01-19 12:33 | PM.PREOP ---
Pre-operative Note Interval Note History & Physical reviewed/Exam performed by Physician: Yes Changes to H&P: No
--- NOTE | 2024-01-19 13:20 | EKG_ITS ---
[id number] [place] [address] Test Date: 2024-01-19 Pat Name: Elijah Mcdermott Department: Room: 90B Gender: Male Developer Advocate: BURT : 1945 Requested By: Order Number: [id number] Reading MD: Molina Graf Measurements Intervals Clark Rate: 58 P: LA: 240 QRS: -6 QRSD: 98 T: 8 QT: 422 QTc: 414 Interpretive Statements Sinus bradycardia with 1st degree AV block with premature atrial complexes in a pattern of bigeminy Electronically Signed On 01-20-2024 12:20:51 PDT by Molina Graf
[2024-01-19] MEDS: CEFAZOLIN 2 GM/100 ML PREMIX 100 ML IV ×2 (14:00→21:38)
--- NOTE | 2024-01-19 14:14 | SUR.OPER ---
Prone on spine table, head in foam head support, padded chest and pelvic supports, gel pad at knees, lower legs supported by pillows; nipples, genitalia and toes free of pressure, arms secured on foam padded arm boards at <90 degrees abduction. Tape over blanket at thigh secured to table.
[2024-01-19] MEDS: BUPIVACAINE 0.25% (PF) 60 ML, EPINEPHrine 0.15 MG INJ (14:28)
[2024-01-19] MEDS: BUPIVACAINE LIPOSOME 266 MG/20 ML VIAL INJ (14:28)
--- NOTE | 2024-01-19 16:09 | DI.RAD.S_ITS ---
PROCEDURE: XR LUMBAR SPINE 2-3V INDICATIONS: L4-5 TLIF ROBOT TECHNIQUE: 2 fluoroscopic spot films COMPARISON: None. FINDINGS: Low resolution intraoperative fluoroscopic spot films show L4-5 interbody fusion with andrei and screw instrumentation well-positioned IMPRESSION: Fluoroscopic guidance Approved by: Larry More M.D. on 01/19/2024 at 16:53
--- NOTE | 2024-01-19 16:25 | P.OP_ITS ---
Operative Date/Time/Diagnoses Date of procedure: 01/19/24 Time of procedure: 13:30 Pre-op diagnosis: 1. L4-5 spondylolisthesis 2. L4-5 spinal stenosis with radiculopathy Post-op diagnosis: same Procedure & Clinicians Procedure: 1. L4-5 Postero-lateral and posterior interbody fusion 2. L4-5 interbody cage placement. 3. L4-5 decompressive laminectomy with bilateral facetecomies 4. L4-5 Posterior non-segmental instrumentation 5. Kennedy of bone marrow from iliac crest 6. Utilization of microsurgical technique and operating microscope 7. Utilization of robotic assisted navigation Same procedure as scheduled: Yes Indications: Patient has been having chronic back pain and worsening lumbar radiculopathy. Patient was found to have L4-5 spondylolisthesis with severe foraminal stenosis left worse than right correlating with patient's symptoms. Patient failed multiple conservative management with worsening back pain, leg pain weakness and numbness in his lower extremity. Patient has been having difficulty performing activity of daily living. After discussing risks benefits of treatment options, patient elected proceed with surgery. Surgeon: Kishan Elias [employer] Driver: Griselda Ham Click Yes if Unassisted: No Anesthesia Type: General Operative Notes Closure Type: primary Prosthetic devices, grafts, tissues, transplants, or devices: Globus CREO MIS screws, Rise cage Estimated Blood Loss (mL): 50 Blood products transfused: none Procedure in detail: Patient was seen in the preoperative area. Risks and benefits of the surgery was discussed with the patient. Informed consent was obtained from the patient and placed in the chart. Surgical site was marked. Patient was taken to the operative room. General anesthesia was administered. Prophylactic antibiotic was given to the patient less than 30 min before the incision was made. Patient was placed into a prone position on the Chad table. Patient's back was then prepped and draped in the sterile fashion. Time-out was performed at this time. After patient was prepped and draped, patient's PSIS was palpated and marked bilaterally. Small 1 cm incision was made over the PSIS for placement of the reference probes. Two trocar was placed into the PSIS 1 on each side. The reference probe was attached to the trocar of the reference apparatus. At this time the C-arm imaging was used to confirm AP and lateral of L4-5 vertebrae and merged the C-arm imaging using the [employer] robotic navigation system with the CT of the lumbar spine. After successful merging was completed and confirmed, skin marker was used to nolvia out the skin incision using the [employer] robotic arm. Patient has lateral C-arm x-ray shows increased spondylolisthesis at L4-5 once patient was placed into a prone position in dictating dynamic instability at L4- 5 level. Bilateral incision was made at this time. Pre templated trajectory was used and guided using the [employer] robotic navigation system for bilateral L4-5 pedicle screw placement. This was done by using the robotic arm to guide the high-speed bur to make a cortical entry point. Next a drill was placed also using the robotic arm and guided using the navigation system drilling partially through bilateral L4 and L5 pedicles. Next L4-5 pedicle screws it was pre templated and measured was placed onto the power long haul truck driver and inserted into the pedicles bilaterally. After all 4 screws were placed C-arm imaging was taken of both AP and lateral to confirm the placement. Excellent placement of the screws were confirmed and a matched precisely with the pre planned screw placement using the navigation system. MARs retractor was inserted using [employer] guidence. Globus MARS retractors was placed inside the incision and docked onto the L4 lamina. Using microsurgical technique and operating microscope, a L4 laminectomy and L4-5 face tectomy was performed using a Kerrison rongeur. The laminectomy and facetectomy was performed in order to decompress patient's cauda equina as well as the nerve roots exiting at the L4-5 level. Patient was found have severe lateral recess and neural foramen stenosis which was fully decompressed after the laminectomy facetectomy. More than 75% of the facets were removed during the process of dec ompression rendering L4-5 level grossly unstable and required a fusion procedure at the same time. The disc space at L4-5 was identified, and a total diskectomy was performed at L4-5 level. The endplates were decorticated using a rasp and shaver. The total diskectomy and decortication was performed at L4-5 level in order to to accomplish a L4-5 fusion. The local bone from the laminectomy and facetectomy was saved for local bone grafting. After the total diskectomy and decortication was completed, Viacel bone graft material was combined with local bone that was harvested earlier. At this time, a separate skin is incision was made over the iliac crest. A Jamshidi needle was inserted into the iliac crest through a separate skin incision. 5 cc of bone marrow aspiration was obtained through the separate skin incision using a Jamshidi needle from the iliac crest. The bone marrow aspiration was combined with local bone and the [employer] bone grafting material. The bone grafting material was placed into the L4-5 interbody space along with a expandable cage. The cage was expanded to its maximum height using the torque limiting screwdriver. The disc preparation as well as the cage insertion were also performed under navigation guidance. After the cage was placed, AP and lateral C-arm imaging was taken to confirm placement of the cage and excellent position was confirmed. Globus MARS retractor was inserted and docked onto the L4-5 posterolateral gutter on the right side. Using the power drill, posterior-lateral decortication was performed at L5-S1 level until bleeding cortical bone was identified. The remaining bone grafting material was placed into the L4-5 posterior lateral gutter he order to accomplish posterolateral fusion at the L5- S1 level. At this time the tulips were attached to the L4-5 pedicle screw shanks. After measuring the length of the rods, they were inserted into the tulips of the pedicle screws and locked in place using locking caps and torque limiting screwdriver bilaterally. Total 4 caps and 2 titanium rods was used in order to complete the posterior instrumentation construct. After all the hardware was placed, and confirmed with AP and lateral C-arm imaging, the wound was then irrigated with sterile normal saline and packed with Ray-Kulwinder gauze for 3 min to accomplish hemostasis. After the gauze was removed the deep fascia was closed with #1 Vicryl suture. The subcutaneous layer was closed with 2-0 Vicryl. The skin was closed with skin ayah. Patient tolerated the procedure well. There were no complications. Neuro monitoring system was used to monitor patient's neurologic status throughout entire procedure. There was no disturbance of the neural monitoring signals throughout the case. The Operation could not have been safely performed without compromising the technical result or length of the procedure, without the assistance of a skilled promotions assistant. The promotions assistant was medically necessary for proper p ositioning, retraction and manipulation of instruments, proper exposure, surgical preparation, and manipulation of tissue. Complications: none Post-operative Condition: stable Disposition: PACU Plan for aftercare: Admit to inpatient hospital
[2024-01-19] MEDS: OXYCODONE IR 5 MG TABLET PO ×2 (17:10→22:40)
--- NOTE | 2024-01-19 17:27 | SUR.PHASEI ---
Pt to PACU with L radial A-line in place. Removed by JAIME Tomas at 1643 and hemostasis reached at 1650.
--- NOTE | 2024-01-19 17:34 | SUR.PHASEI ---
Pt transferred to 219 by JAIME Tomas with 2 belongings bags including BLE braces.
[2024-01-19] MEDS: LACTATED RINGERS 1,000 ML 125 ML IV (18:30)
[2024-01-19] MEDS: DOCUSATE 100 MG CAPSULE PO (21:37)
[2024-01-19] MEDS: SENNOSIDES 8.6 MG TABLET 17.2 MG PO (21:38)
[2024-01-20] VITALS: BP 116/47; PULSE 64; RESP 18; TEMP 35.9; O2SAT 97
[2024-01-20] MEDS: LACTATED RINGERS 1,000 ML 125 ML IV (03:23)
[2024-01-20 04:00] VITALS: BP 119/56; PULSE 74; RESP 16; TEMP 35.8; O2SAT 96
[2024-01-20] MEDS: LEVOTHYROXINE 75 MCG TABLET PO (05:34)
[2024-01-20] MEDS: PANTOPRAZOLE DR 20 MG TABLET PO (05:34)
[2024-01-20] MEDS: CEFAZOLIN 2 GM/100 ML PREMIX 100 ML IV (05:35)
[2024-01-20] MEDS: ACETAMINOPHEN 325 MG TABLET 650 MG PO (07:02)
--- NOTE | 2024-01-20 07:31 | PM.DS.1 ---
History of Present Illness History of Present Illness Date Patient Seen: 01/20/24 Time Patient Seen: 07:31 Chief complaint: INPT Narrative: Operative Date/Time/Diagnoses Date of procedure: 01/19/24 Time of procedure: 13:30 Pre-op diagnosis: 1. L4-5 spondylolisthesis 2. L4-5 spinal stenosis with radiculopathy Post-op diagnosis: same Procedure & Clinicians Procedure: 1. L4-5 Postero-lateral and posterior interbody fusion 2. L4-5 interbody cage placement. 3. L4-5 decompressive laminectomy with bilateral facetecomies 4. L4-5 Posterior non-segmental instrumentation 5. [place] of bone marrow from iliac crest 6. Utilization of microsurgical technique and operating microscope 7. Utilization of robotic assisted navigation Same procedure as scheduled: Yes Indications: Patient has been having chronic back pain and worsening lumbar radiculopathy. Patient was found to have L4-5 spondylolisthesis with severe foraminal stenosis left worse than right correlating with patient's symptoms. Patient failed multiple conservative management with worsening back pain, leg pain weakness and numbness in his lower extremity. Patient has been having difficulty performing activity of daily living. After discussing risks benefits of treatment options, patient elected proceed with surgery. Surgeon: Kishan Elisa Tester Vibrator Equipment: Griselda Ham Click Yes if Unassisted: No Anesthesia Type: General Operative Notes Closure Type: primary Prosthetic devices, grafts, tissues, transplants, or devices: Globus CREO MIS screws, Rise cage Estimated Blood Loss (mL): 50 Blood products transfused: none Discharge Providers Provider Date of admission: 01/19/24 08:32 Discharge Date: 01/20/24 Primary care physician: May Guy PA-C Consults: 01/19/24 17:34 Consult to Occupational Therapy Evaluate & Treat Comment: Physician Instructions: Evaluate and treat Consult to Physical Therapy Evaluate & Treat Comment: Please see early if possible - pt doing great! Physician Instructions: Evaluate and Treat Discharge provider: Griselda Ham PA-C Summary Hospital Course Discharge Diagnosis: L4-5 spondylolisthesis, L4-5 spinal stenosis with radiculopathy; s/p L4-5 transforaminal lumbar interbody fusion Hospital Course: Mr Mcdermott's hospital course was unremarkable. On the morning of POD# 1, he was feeling well and wanted to go home. He was eating and voiding without difficulty and his pain was well-controlled with oral medication. He had not yet been evaluated by PT, but he had been OOB several times and on my visit was sitting up in a chair. Exam Vital Signs (past 8 hours): - 01/20/24 00:00 01/20/24 04:00 Temperature 96.6 F L 96.5 F L Pulse Rate 64 74 Respiratory Rate 18 16 Blood Pressure 116/47 L 119/56 L Pulse Oximetry 97 96 Oxygen Flow Rate 0 0 Oxygen Delivery Method Room Air Oxygen Flow Rate 0 Narrative Exam Narrative: 5/5 strength in hip flexors, quadriceps, hamstrings; 1/5 PF, 0/5 DF, EHL bilaterally. Pt has bilateral foot drop at baseline. Sensation to light touch intact throughout BLE, calves soft and compressible. Low back dressing CDI. [facility] Medical History (Updated 01/15/24 @ 14:15 by Zo Pond RN) History of COVID-19 (2022) First degree AV block Dyslipidemia Toe ulcer White matter disease Sinus bradycardia PVCs (premature ventricular contractions) Hypercalcemia GERD (gastroesophageal reflux disease) Chronic total occlusion of artery of the extremities Carotid stenosis BPH (benign prostatic hyperplasia) Arthritis Anxiety TIA (transient ischemic attack) Hypothyroidism SI (sacroiliac) joint dysfunction Lumbar spinal stenosis Lumbar radiculopathy Lumbar facet arthropathy Dorsalgia Lumbar spondylosis Dropfoot Thyroid disease HTN (hypertension) Raynaud's syndrome Spondylosis Peripheral neuropathy Surgical History (Updated 01/20/24 @ 07:38 by Griselda Ham PA-C) Hx of bilateral cataract extraction Hx of colonoscopy (07/08/17) History of orthopedic surgery History of orthopedic surgery H/O vasectomy Hx of tonsillectomy H/O hernia repair (~2011) History of carpal tunnel release Family History Father Heart disease Sister Cancer Social History (Updated 03/22/21 @ 11:34 by Linda Qureshi RN) marital status: household members: spouse occupational status: previously employed Previous occupational history: retired Smoking Status: Never smoker alcohol intake: current substance use type: does not use Discharge Assessment & Plan Assessment and Plan Assessment: L4-5 spondylolisthesis, L4-5 spinal stenosis with radiculopathy; s/p L4-5 transforaminal lumbar interbody fusion Plan of Treatment: Discharge home w/ spouse after PT today if PT agrees. H/o stroke, on daily ASA; ok to restart on 01/23/2024. Multimodal pain control, f/u in office as scheduled. Discharge Plan Discharge Plan Patient Disposition: Home Discharge orders & Medications Prescriptions: New oxycodone 5 mg Tablet 5 mg PO Q4-6H PRN (Reason: Pain, Moderate (4-6)) Qty: 40 0RF polyethylene glycol 3350 17 gram Powder In Packet 17 g PO DAILY PRN (Reason: Constipation) Qty: 100 0RF Continued cetirizine [Aller-Kulwinder] 10 mg Tablet 10 mg PO DAILY acetaminophen 500 mg Tablet 500 mg PO Q6H PRN (Reason: Pain) propranolol 40 mg Tablet 40 mg PO DAILY PRN (Reason: Anxiety) omeprazole 20 mg Tablet,Delayed Release (Dr/Ec) 20 mg PO DAILY celecoxib 200 mg capsule 200 mg PO DAILY tramadol 50 mg tablet 50 mg PO 3XD PRN (Reason: pain) aspirin 81 mg Capsule 81 mg PO DAILY levothyroxine [Levoxyl] 75 mcg tablet 75 mcg PO DAILY sertraline 50 mg tablet 50 mg PO DAILY Follow up/Referrals: May Guy PA-C [Primary Care Provider] - Kishan Elias MD [Physician] - 02/05/24 10:30 am (Follow up w/ Griselda Ham PA-C, at [facility] in [place].) Diet/Activity/Treatments Diet: Diet as Tolerated Activity: No deep bending or twisting at the waist. No lifting more than 10 pounds. Skin/Wound/Dressing Care Report to your healthcare provider any signs of infection, such as:: chills, fever, night sweats, unusual drainage and unusual redness Dressing: May shower. Keep dressing as dry as possible. If dressing becomes wet or dirty, may remove and replace with clean, dry gauze. No bathing or otherwise soaking incisions. Do not apply any creams, lotions, or ointments to incisions. Visit Report/Discharge Packet Instructions: DI for Prescription Opioid Use, DI for Transforaminal Lumbar Interbody Fusion Stand Alone Forms: Patient Portal/API, Stroke Signs & Symptoms, Surgery Discharge Discharge Data Primary Care Provider: May Guy Quality VTE Deep Vein Thrombosis/Pulmonary Embolism Present on Admission: No
[2024-01-20] MEDS: DOCUSATE 100 MG CAPSULE PO (08:24)
[2024-01-20] MEDS: LORATADINE 10 MG TABLET PO (08:24)
[2024-01-20] MEDS: SERTRALINE 50 MG TABLET PO (08:24)
--- NOTE | 2024-01-20 09:00 | OT.IP.EVAL ---
Current Diagnoses Spondylolisthesis, lumbar region (01/19/24) Spinal stenosis, lumbar region with neurogenic claudication (01/19/24) Arthrodesis status (01/19/24) Surgery Performed Operation Date: 01/19/24 12:15 Actual Procedures p L4-5 TLIF-Robot - Kishan Elias MD Past Medical History (Last Updated 01/15/24 @ 14:15 by Zo Pond RN) Anxiety Arthritis BPH (benign prostatic hyperplasia) Carotid stenosis 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 Dyslipidemia First degree AV block GERD (gastroesophageal reflux disease) History of COVID-19 (2022) HTN (hypertension) Hypercalcemia Hypothyroidism Lumbar facet arthropathy Lumbar radiculopathy Lumbar spinal stenosis Lumbar spondylosis Peripheral neuropathy PVCs (premature ventricular contractions) Raynaud's syndrome SI (sacroiliac) joint dysfunction Sinus bradycardia Spondylosis Thyroid disease TIA (transient ischemic attack) Toe ulcer White matter disease Surgical History (Last Updated 01/15/24 @ 14:09 by Zo Pond RN) H/O hernia repair (~2011) H/O vasectomy History of carpal tunnel release History of orthopedic surgery History of orthopedic surgery Hx of bilateral cataract extraction Hx of colonoscopy (07/08/17) Hx of tonsillectomy Occupational Therapy Inpatient Evaluation/Re-Eval M1 PT/OT-IP Prior Functional Status Start: 01/20/24 08:55 Freq: NEEDED Status: Active Protocol: Document 01/20/24 08:55 [facility] (Rec: 01/20/24 09:15 [facility] [id number]) Medical Review Prior Functional Status Communication Independent Mobility and Gait Pt having to use a walking stick and to support him while outside. Pt did not use a device inside. Pt uses AFO at all times when up walking. Activities of Daily Living and IADL's Pt able to do with increased time and pain. Prior Functional Level (Other details) Pt states prior does have tremors. Social History Household Members spouse Living Arrangements House Number of Floors (Floors) One Floor Number of Stairs To Enter/Railing? From the kitchen 5 steps with left rail up and house to hold to. Home Environment Standard Height Toilet,Walk in Shower,Tub/Shower,Built-In Shower Seat Home Equipment Front Wheel Walker,Straight Cane,Hand Held Shower Additional Social History Comment Pt has walking sticks. M2 OT-IP Current Condition Start: 01/20/24 08:55 Freq: Status: Active Protocol: Document 01/20/24 08:55 [facility] (Rec: 01/20/24 09:15 [facility] [id number]) Occupational Therapy Current Condition Current Condition Evaluation Date 01/20/24 Treatment Diagnosis S/P L4-5 TLIF Diagnosis Onset Date 01/19/24 Post Operative Precautions Lumbar Precautions Log Roll,No Twisting,Limit Bending,Lifting Restriction of 10 lbs,Gait Belt above Incisional Area M3 OT- IP Subjective and Pain Start: 01/20/24 08:55 Freq: Status: Active Protocol: Document 01/20/24 08:55 [facility] (Rec: 01/20/24 09:15 [facility] [id number]) OT- Subjective Occupational Therapy Visit Type Type Initial Evaluation Visit Start Time 08:03 Visit Stop Time 09:00 Occupational Therapy Visit Comments Patient Comments Pt agreed to get up, pt's present for OT eval. Patient/Caregiver Goals TO go home. OT Pain Assessment Pain When Pain Assessed At Rest Pain Present Pain Present Pain Reported Location Back Intensity 1 Scale Used Numeric (0 - 10) M4 OT- IP ADL's Start: 01/20/24 08:55 Freq: Status: Active Protocol: Document 01/20/24 08:55 [facility] (Rec: 01/20/24 09:15 [facility] [id number]) OT [id number] General Evaluation Self-Feeding Ability Independent Comments OT Self-Feeding Comments WHile seated. OT ADL-Grooming General Evaluation Grooming Ability Standby Assistance Comments OT Grooming Comments While standing with FWW. OT ADL-Oral Care Comments Oral Care Comments Pt states to do after breakfast. Went over best to just spit into a cup or hinge at his hips to spit in order to best follow his back precautions. OT ADL-Dressing General Eval Lower Body Dressing Ability Maximum Assistance Areas Needing Assistance Socks,Shoes,Orthosis/ Prosthesis Comments OT Dressing Comments Pt will need assist for socks and AFO's from his . Suggested pt get a realtime captioner to assist with LB dressing needs. OT ADL-Toileting General Evaluation Toileting Ability Standby Assistance Comments OT Toileting Comments Pt able to stand with the fww over to toilet to urinate. Suggested to have BSC next to the bed or use of urinal as pt uses the bathroom 4x /night. OT ADL-Bathing Comments OT Bathing Comments Spoke of possibly getting a shower chair pending if able to use the built in seat. Educated pt and of his bandage/dressing while showering. M5 OT- IP IADL's Start: 01/20/24 08:55 Freq: Status: Active Protocol: Document 01/20/24 08:55 [facility] (Rec: 01/20/24 09:15 [facility] [id number]) OT-Instrumental Activities of Daily Living Deficits IADL Deficits Identified Deficits Home Safety Awareness Awareness of Need for Assistance at Home Good Awareness Ability to Problem Solve Emergency Able to Problem Solve Situations Home Safety Comments Pt has a supportive to be able to assist with all his needs. Money Management Money Management Caregiver Provides Assistance Meal Preparation Meal Preparation Caregiver Provides Assist Human Services Instructor Human Services Instructor Caregiver Provides Assist M6 OT- IP Functional Cognition Start: 01/20/24 08:55 Freq: Status: Active Protocol: Document 01/20/24 08:55 [facility] (Rec: 01/20/24 09:15 [facility] [id number]) Cognitive Factors Limiting Selfcare Function Cognitive Ability Level of Alertness Alert Patient Orientation Name,Place,Situation Attention Span Ability Capable of Focused Attention, Capable of Sustained Attention Ability to Follow Commands Able to Follow One Step Commands Cognitive Comments Cognitive Assessment Comments Pt able to state all his precautions and needing initial vc to use at least one hand to push up from surfaces . Pt able to incorporate his back precautions for ADL and mobility needs. OT- Vision and Hearing OT- Hearing Assessment OT- Hearing Assessment WFL OT- Vision Assessment Visual Acuity Glasses All The Time Visual Attentiveness WFL Occular Pursuits WFL M7 OT- IP Mobility and Balance Start: 01/20/24 08:55 Freq: Status: Active Protocol: Document 01/20/24 08:55 [facility] (Rec: 01/20/24 09:15 [facility] [id number]) OT- Bed Mobility Assessment Rolling Level of Assistance Standby Assistance Supine to Sit Supine to Sit Assist Standby Assistance Sit to Supine Sit to Supine Assist Minimal Assistance Scooting Scooting to Edge of Bed Standby Assistance Scooting Up and Down in Bed Standby Assistance OT-Transfer Assessment Sit to and From Stand Sit to and from Stand Minimal Assistance,Moderate Assistance Transfers Transfer Ability Contact Guard Assistance Technique Transfer Destination Bed,Chair Transfer Technique Stand Step Pivot Devices Transfer Assistive Devices Gait Belt,Front Wheeled Walker Comments Mobility Comments ABle to show pt's how to nelly/doff the gait belt and how to assist pt to stand. Pt may need extra pillows in his recliner to sit on as pt have very long legs to assist to come to stand easier. Pt's able to assist pt to stand with CAPRICE to MODA x1 to FWW. OT- Balance Assessment Sitting Balance and Reactions Static Sitting Balance Ability Good Dynamic Sitting Balance Ability Good Standing Balance and Reactions Static Standing Balance Ability Fair Dynamic Standing Balance Ability Fair M8 OT- IP Objective Assessments Start: 01/20/24 08:55 Freq: Status: Active Protocol: Document 01/20/24 08:55 [facility] (Rec: 01/20/24 09:15 [facility] [id number]) OT Strength Comments Strength Comments WFL for needs. M9 OT- IP Assessment and Plan Start: 01/20/24 08:55 Freq: Status: Active Protocol: Document 01/20/24 08:55 [facility] (Rec: 01/20/24 09:15 [facility] [id number]) OT Summary Assessment and Plan Potential Rehabilitation Potential Excellent Analytic Complexity at Evaluation Low Summary OT Impairments Pain,Strength,Balance, Functional Mobility,Dressing, Toileting,Bathing,Toilet Transfers,Shower Transfers Progress Towards Goals Progressing Toward Goals Assessment Summary Pt low complexity and main barriers are steps, difficulty to come to stand from low surfaces and will need assist for LB dressing needs as pt wear bilateral AFO's. Pt's able to participate in caregiver training for ADL and mobility needs. Pt to go home with his to assist when medically stable. Goals Grooming Goal Independent Dressing Goal Moderate Assistance Toileting Goal Independent Bathing Goal Minimal Assistance Toilet Transfer Goal Independent Shower Transfer Goal Standby Assistance Days to Meet Goals 5 Frequency of Treatment Other frequency 5x/wk Treatment Plan OT Treatment Plan ADL Training,Functional Mobility,Patient/Family Education,Discharge Planning Discharge Recommendations OT Discharge Recommendations Home with Assistance Home Equipment Needs Surveillance Specialist, shower chair Transportation Needs at Discharge Private Vehicle
[2024-01-20 09:20] VITALS: BP 112/42; PULSE 77; TEMP 36.4; O2SAT 98
--- NOTE | 2024-01-20 09:40 | PT.IIE ---
Current Diagnoses Spondylolisthesis, lumbar region (01/19/24) Spinal stenosis, lumbar region with neurogenic claudication (01/19/24) Arthrodesis status (01/19/24) Surgery Performed Operation Date: 01/19/24 12:15 Actual Procedures p L4-5 TLIF-Robot - Kishan Elias MD Surgical History (Last Updated 01/15/24 @ 14:09 by Zo Pond, RN) H/O hernia repair (~2011) H/O vasectomy History of carpal tunnel release History of orthopedic surgery History of orthopedic surgery Hx of bilateral cataract extraction Hx of colonoscopy (07/08/17) Hx of tonsillectomy Medical History (Last Updated 01/15/24 @ 14:15 by Zo Pond, RN) Anxiety Arthritis BPH (benign prostatic hyperplasia) Carotid stenosis 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 Dyslipidemia First degree AV block GERD (gastroesophageal reflux disease) History of COVID-19 (2022) HTN (hypertension) Hypercalcemia Hypothyroidism Lumbar facet arthropathy Lumbar radiculopathy Lumbar spinal stenosis Lumbar spondylosis Peripheral neuropathy PVCs (premature ventricular contractions) Raynaud's syndrome SI (sacroiliac) joint dysfunction Sinus bradycardia Spondylosis Thyroid disease TIA (transient ischemic attack) Toe ulcer White matter disease Physical Therapy Inpatient Evaluation/Re-Eval M1 PT/OT-IP Prior Functional Status Start: 01/20/24 08:55 Freq: NEEDED Status: Discharge Protocol: Document 01/20/24 08:55 [facility] (Rec: 01/20/24 09:15 [facility] [id number]) Medical Review Prior Functional Status Communication Independent Mobility and Gait Pt having to use a walking stick and to support him while outside. Pt did not use a device inside. Activities of Daily Living and IADL's Pt able to do with increased time and pain. Prior Functional Level (Other details) Pt states prior does have tremors. Social History Household Members spouse Living Arrangements House Number of Floors (Floors) One Floor Number of Stairs To Enter/Railing? From the kitchen 5 steps with left rail up and house to hold to. Home Environment Standard Height Toilet,Walk in Shower,Tub/Shower,Built-In Shower Seat Home Equipment Front Wheel Walker,Straight Cane,Hand Held Shower Additional Social History Comment Pt has walking sticks. M1 PT/OT-IP Prior Functional Status Start: 01/20/24 13:05 Freq: NEEDED Status: Active Protocol: Document 01/20/24 09:40 AB (Rec: 01/20/24 13:20 AB [id number]) Medical Review Prior Functional Status Medical History Reviewed Yes Communication able to make needs known Mobility and Gait pt stated that he was independent with all mobilities and ambulation without AD. pt uses B AFOs Social History Household Members spouse Living Arrangements House Number of Floors (Floors) One Floor Number of Stairs To Enter/Railing? 5 steps L rail ascending has 1 step down to living room Home Environment Standard Height Toilet,Walk in Shower,Built-In Shower Seat Home Equipment Front Wheel Walker,Four Wheel Walker,Hand Held Shower M2 PT-IP Current Condition Start: 01/20/24 13:05 Freq: NEEDED Status: Active Protocol: Document 01/20/24 09:40 AB (Rec: 01/20/24 13:20 AB [id number]) Physical Therapy Current Condition Current Condition Evaluation Date 01/20/24 Treatment Diagnosis s/p L4-5 TLIF; difficulty in walking Onset Date 01/19/24 M3 PT-IP Subjective Start: 01/20/24 13:05 Freq: NEEDED Status: Active Protocol: Document 01/20/24 09:40 AB (Rec: 01/20/24 13:20 AB [id number]) Subjective Physical Therapy Visit Type Type Initial Evaluation Visit Start Time 09:40 Visit Stop Time 10:35 Number of TYPING TEACHER Visits 0 Physical Therapy Visit Comments Patient Comments agreeable to do PT Therapy Pain Assessment Pain When Pain Assessed At Rest Pain Present Pain Present Pain Reported Location Back Intensity 1 Scale Used Numeric (0 - 10) Pain Management Techniques Apply Cold,Distraction, Modification of Treatment,Re- positioning,Timing of Activity with Medications M4 PT-IP Mobility and Gait Start: 01/20/24 13:05 Freq: NEEDED Status: Active Protocol: Document 01/20/24 09:40 AB (Rec: 01/20/24 13:20 AB [id number]) PT-Bed Mobility Assessment Rolling Type of Rolling Log Rolling Level of Assist Standby Assistance Supine to Sit Supine to Sit Standby Assistance Sit to Supine Sit to Supine Standby Assistance PT-Transfer Assessment Sit to and From Stand Sit to and from Stand Contact Guard Assistance,1 Person Assistance,Use of Upper Extremities Equipment Transfer Assistive Device Gait Belt,Front Wheeled Walker Orthotic/Prosthetic Devices or Brace: Yes Transfers Transfer Destination Bed,Chair Transfer Technique ambulated Transfer Ability Level of Assist Contact Guard Assistance,1 Person Assistance,Use of Upper Extremities Comments Mobility Comments pt sitting on the chair and agreeable to do PT. spouse in room. pt able to recall back precautions. pt completed sit to stand CGA and ambulated in room using FWW CGA ~ 20 ft. pt sat on EOB. completed log roll sit<>supine requiring SBA to CGA and cues for techniques. pt educated on log roll techniques and completed again SBA with no cues needed . Caregiver training conducted. educated spouse on how to use safety belt and how to assist pt. spouse was able to put safety belt on pt and assisted pt with sit to stand. pt ambulated in room with spouse assisting ~ 25 ft. pt sat on the chair and rested. pt agreeable to do stairs. pt completed sit <>stand from the chair with spouse assisting and ambulated in the hallway ~ 125 ft CGA using FWW. spouse was able to assist p. PT educated pt/spouse and demonstrated up/down stairs. pt completed up/down steps holding on to L rail with B hands CGA with spouse assisting. pt also completed up/down platform steps x 2 reps with spouse assisting. initial cues from PT but able to complete with just spouse cueing on 3nd attempt. assisted pt back to his room. ambulated from w/c to chair using FWW CGA. positioned pt on the chair. call light and table placed within reach. educated pt and spouse on car transfers. pt and spouse without further concerns. Gait Assessment Gait Gait Assistance Required: Contact Guard Assist Distance (Feet) 125 Able to Maintain Weight Bearing Status Yes During Gait Assistive Devices Assistive Device Gait Belt,Front Wheeled Walker Orthotic/Prosthetic Devices or Brace: Yes Gait Deviations General Gait Pattern Decreased Stride Length, Decreased Feet Clearance, Narrow Based Gait Factors Limiting Gait Function Factors Limiting Gait Function Decreased Activity Tolerance, Decreased Strength,Difficulty Following Directions,Limited Range of Motion,Pain,Poor Balance,Poor Safety Awareness Stair Climbing Assessment Evaluation Level of Assist On Stairs Contact Guard Assistance Devices Stair Climbing Assistive Devices Left Railing Technique/Endurance Stair Climbing Direction Ascend and Descend Stair Climbing Technique Step to Step Number of Steps Climbed 3 Query Text: Stair Climbing Set # Repetitions (reps) 1 PT-Balance Assessment Sitting Balance and Reactions Static Sitting Balance Ability Normal Dynamic Sitting Balance Ability Good Standing Balance and Reactions Static Standing Balance Ability Fair Dynamic Standing Balance Ability Fair Device Used FWW M5 PT-IP Objective Assessments Start: 01/20/24 13:05 Freq: NEEDED Status: Active Protocol: Document 01/20/24 09:40 AB (Rec: 01/20/24 13:20 AB [id number]) Orientation Orientation/Cognition Level of Alertness Alert Orientation Name,Place,Situation Language Function Ability Hard of Hearing Safety Awareness Decreased Safety Awareness Memory Description No Deficits Noted Gross Range of Motion Lower Extremity ROM Assessment Within Functional Limits Impairments ankles NT: pt has AFOs on Strength Lower Extremity Strength Ankle NT: pt with AFOs Comments Strength Comments RLE: 4-/5 LLE: 4/5 Coordination Assessment Gross Coordination Gross Coordination WNL Sensation Assessment Comments Sensation Comments pt stated that he has neuropathy but sensation is intact; 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 Muscle Tone Muscle Tone WNL Yes M6 PT-IP Treatment Start: 01/20/24 13:05 Freq: NEEDED Status: Active Protocol: Document 01/20/24 09:40 AB (Rec: 01/20/24 13:20 AB [id number]) Physical Therapy Treatment Education Education Provided Precautions,Weight Bearing Status,Safety M7 PT-IP Assessment and Plan Start: 01/20/24 13:05 Freq: NEEDED Status: Active Protocol: Document 01/20/24 09:40 AB (Rec: 01/20/24 13:20 AB [id number]) PT Summary Assessment and Plan Potential Rehabilitation Potential Good Status of Condition at Evaluation Stable Summary Impairments Pain,ROM,Strength,Balance, Coordination,Sensation,Tone, Cognition,Bed Mobility, Transfers,Gait,Activity Tolerance Assessment Summary pt is an 78 y/o M s/p L4-5 TLIF POD 1. pt requiring CGA with mobility using fWW and cues for safety. caregiver training conducted and spouse was able to assist pt safely. pt plans to go home today and may go home when medically stable. Goals Bed Mobility Goal Independent Transfer Goal Independent,Front Wheeled Walker Gait Goal Independent,Front Wheel Walker Gait Distance 200 Other Goals up/down 5 steps L rail ascending up/down platform step using FWW CGA Days to Meet Goals 5 Frequency of Treatment Frequency Of Treatment Twice a Day Treatment Plan Physical Therapy Treatment Plan Bed Mobility Training,Transfer Training,Gait Training, Therapeutic Exercise,Balance Retraining,Post Op Education, Discharge Planning,Hot or Cold Pack,Neuromuscular Re-ed, Coordination Retraining,Manual Therapy Precautions Lumbar Precautions Log Roll,No Twisting,Limit Bending,Lifting Restriction of 10 lbs,Gait Belt above Incisional Area Brace AFO BLE Recommendations To Nursing Amount of Assist Needed 1 Person Assist Discharge Recommendations PT Discharge Recommendations Home with Assistance Transportation Needs at Discharge Private Vehicle
--- NOTE | 2024-01-20 10:43 | CM.DANOTE ---
DCP Assessment Visit Note Reviewed EMR and team rounds for status updates. Met with pt/spouse at bedside to introduce self and role. Pt was found to be alert/oriented, appearing comfortable, stating that he felt ready for d/c home today. Pt lives modified independently with his spouse in their own home in [place]. His spouse will receive cg training this am with PT, followed by home d/c. Pt denies any assistance or resource needs from DCP at this time. Payor: Medicare Attending: Dr. Elias Pt is a 78 year-old M post-op day 1 from lumbar surgery. He has a hx of worsening lumbar pain that radiates down both legs, as well as numbness. He's tried conservative therapies such as PT, home exercises, and nerve ablation with no lasting benefit. He also has drop foot in both feet, and is no longer able to participate in his ADL's without significant pain and functional limitations. Plan was made for surgery followed by d/c home, OP PT. Pt states that he has all of the necessary DME for home recovery needs. Discharge Planning/Care Management Advanced directive, confirm from FAMILY Start: 01/19/24 18:00 Freq: Q24H Status: Active Protocol: Document 01/19/24 18:00 LDV (Rec: 01/19/24 19:01 LDV [id number]) Advance Directive, confirm on record Time 19:00 Person contacted Patient Copy received No CM Discharge Assessment Start: 01/20/24 10:38 Freq: Status: Active Protocol: Document 01/20/24 10:38 DPL (Rec: 01/20/24 10:42 DPL [id number]) Discharge Planning Assessment Assigned Housing Management Representative SHREYAS Montano Advance Directives? Yes Advance Directives on File No History Provided By Patient,Medical Record Has Patient been admitted in last 30 No days? Prior Living Arrangements House Household Members spouse Type of transporation used prior to Drives own vehicle admit Independent with ADL's No: Modified indpendent w/ walking stick and 's assistance. Needs Assistance With Home Chores / Shopping Community Services used prior to Physical Therapy admission: DME Already Rented / Owned Bath Bench,Elevated Toilet Seat,FWW / Walker,Cane Patient/Family Preference OP PT Therapy Barriers to Discharge No Discharge Plan Home Community Services Physical Therapy Transportation Arrangement Spouse Referrals Initiated None needed Whiteboard Updated in Patient Room with Yes name and ext. # of Housing Management Representative Review Status In Process Please Provide Date Initial DC 01/20/24 Assessment Was Performed Pre-Anesthesia Assessment Start: 01/15/24 13:43 Freq: Status: Complete Protocol: Document 01/15/24 13:43 CAB (Rec: 01/15/24 14:26 CAB [id number]) Pre-Anesthesia Assessment Patient Information Reviewed Via Phone Assessment Assessment Completed With Patient Diagnostic Results BMP/CMP,EKG Comment Outside labs/EKG scanned Primary Care Provider May Guy Seen Specialist in Last 12 Months Yes Specialist Seen Chief Radiation Therapist,Orthopedist Primary Language Danish Maternal Child Nurse Required No Height 182.88 cm Weight 72.575 kg Body Mass Index (BMI) 21.7 Hearing Ability Normal Visual Assist Glasses Dentition Type Teeth, Natural Present Barriers to Learning None Comment Pt denies any difficulties Hx Anesthesia Reactions No Hx Family Anesthesia Reaction No Hx Malignant Hyperthermia No Hx Blood Transfusions No Hx Blood Transfusion Reaction No Anesthesia Review Requested No Instrument Man No alcohol intake current alcohol intake frequency 0-2 drinks per day Smoking Status Never smoker Substance Use Type does not use Pain Present Pain Reported Musculoskeletal Symptoms Back Pain,Muscle Weakness, Numbness,Tingling History of Falling (Recent or History of No ) Patient is completely paralyzed or No completely immobile Prosthesis or Orthotic Device Cane Mental Status Oriented to own ability Is patient on oxygen? No Does patient have TORRES/SOB No Hx Sleep Apnea No CPAP/BIPAP use not prescribed Currently Taking a Beta Chip Yes: Propranolol prn for anxiety Hx Chest Pain No Hx SOB No Hx Syncope or Dizziness No Anti-Coagulant Therapy No Has a Chief Radiation Therapist Yes: Visit 07/24/[address] Guevara @ [facility] Cardiac Testing No Hx Pacemaker/ICD No Pacemaker Rep Required? No Cardiac Clearance Received Yes Comment Cardiac records scanned and in surgery folder Diet Type At Home Regular Dysphagia No Gastrointestinal Symptoms Reflux Bladder Pattern Urgency Urinary Catheter Present No Hx Urinary Self Catheterization No Diabetes No Hx Drug Resistant Organism No Presence of External or Internal Medical No Devices Received a COVID vaccine? Yes Marital Status Lives With spouse Current Living Arrangements House Number of Floors (Floors) One Floor Support System Spouse Does the Patient Have Assistance After Yes Surgery Patient Discharge Plan Description Return Home Comment Pt advised 1-2 day length of stay per surgeon Additional comment Lives on [facility] Feels Safe in Current Environment Yes Been Physically Hurt or Threatened By a No Person in Current Environment Do you have thoughts of harming yourself None or others? Are you currently considering suicide? No Do you have a plan to hurt yourself or No Plan others? Do You Have Any Spiritual Beliefs That No May Affect Your HC Choices? Do You Have Any Cultural Practices That No May Affect Your HC Choices? Who Can We Speak to About Patient's Care Family, friends Identifying Code for Release of Patient Declines to issue Information Health Care Proxy/Next of Kin Sara () Health Care Proxy Emergency Contact Name Sara () Emergency Contact Advance Directives? Yes Advance Directives on File No Requested Patient Bring Advanced Yes Directives DOS Power of Test Desk Supervisor No PAC Instructions Durable medical equipment, Medications to take/avoid, Nasal antibiotic,No ETOH/ petroleum product on skin DOS, NPO,Ortho class,Post-op transportation,Pre-surgical wash,Sensory aids,Sturdy shoes /comfortable clothes,Do not bring valuables and remove jewelry
--- NOTE | 2024-01-20 12:29 | PC.NURSE ---
Discharge Note Patient A&O, VSS, RA, no complaints of pain/discomfort. Discharge packet reviewed with patient, all questions/concerns addressed. PIV/TELE discontinued. Patient able to dress self and pack belongings with assistance of . Patient taken down via wheelchair to POV.
== END 2024-01-20 12:00 | disposition home or self-care (01) | DRG 455 ==
PROVIDERS: Admitting Provider Orthopaedic Surgery Orthopaedic Surgery of the Spine; Family Provider Family Medicine Geriatric Medicine; PCP Physician Assistant; Referring Provider Orthopaedic Surgery Orthopaedic Surgery of the Spine; Visit Provider Orthopaedic Surgery Orthopaedic Surgery of the Spine
PROC: 0SG00AJ Fusion of Lumbar Vertebral Joint with Interbody Fusion Device, Posterior Approach, Anterior Column, Open Approach (ICD-10-PCS; principal; 2024-01-19 12:15)
DX: M43.16 Spondylolisthesis, lumbar region (principal); M51.36 Other intervertebral disc degeneration, lumbar region; M41.9 Scoliosis, unspecified; M43.17 Spondylolisthesis, lumbosacral region; M54.50 Low back pain, unspecified; K44.9 Diaphragmatic hernia without obstruction or gangrene; I70.0 Atherosclerosis of aorta; N28.1 Cyst of kidney, acquired; K57.30 Diverticulosis of large intestine without perforation or abscess without bleeding; M48.062 Spinal stenosis, lumbar region with neurogenic claudication; M21.371 Foot drop, right foot; M21.372 Foot drop, left foot; M54.16 Radiculopathy, lumbar region; F41.9 Anxiety disorder, unspecified; K21.9 Gastro-esophageal reflux disease without esophagitis; E03.9 Hypothyroidism, unspecified; Z86.73 Personal history of transient ischemic attack (TIA), and cerebral infarction without residual deficits
CPT/HCPCS: 36415; 72100; 72131; 76000; 85025; 93005; 97161; 97165; 97530; 97535; C1713; C1831; C9290; J0171; J0690; J1100; J1170; J1885; J2405; J2704; J3010